=== PATIENT | male | born 1945 | race Caucasian/White ===

== ENCOUNTER 2018-06-21 17:39 | Observation (INO) | payer BC ==
[2018-06-21] MEDS ORDERED: Sodium Chloride 0.9% 10 ML Syringe FLUSH PRN ×2 (17:52→20:31)
[2018-06-21] MEDS ORDERED: Sodium Chloride 0.9% 2.5 ML Syringe FLUSH PRN ×2 (17:52→20:31)
[2018-06-21] MEDS ORDERED: Nitroglycerin 2% Oint 1 GM UD Packet TOP ONE (17:55)
--- NOTE | 2018-06-21 18:03 | EDM.PDOC ---
ED HPI GENERAL MEDICAL PROBLEM - General Chief Complaint: Respiratory Problem Stated Complaint: SHORTNESS OF BREATH Time Seen by Provider: 06/21/18 17:50 - History of Present Illness INITIAL COMMENTS - FREE TEXT/NARRATIVE: HISTORY AND PHYSICAL: History of present illness: The patient is a 73-year-old male with a history of chronic A. fib hypertension diabetes a renal transplant 7 years ago and who follows with Dr. Link Corley in the clinic and presents with complaints of shortness of breath and lower extremity edema that has been progressive over the last 2-3 days. Over the last 2-3 weeks the patient has been seen in the ER down in [place] and has had 2 hospitalizations there. On the first visit he had issues with his left great toe and drove down there because of his concerns about that and he was diagnosed with respiratory issues and cardiac abnormalities, bradycardia. The and patient know only itchy information about that first ER admission and hospitalization and say that he was discharged and he re-presented to the ED again for evaluation of his toe and then had pneumonia at that time. He was admitted on both ER visits and was re-seen by the terminal operator 2 days ago in [place] and was told that his toe would need amputation and that he needs to go get cardiac clearance from his provider here. The patient has scheduled a follow-up appointment with Dr. Jewell but has not gone to that appointment. The patient is on Eliquis as well as Cardizem for his A. fib and he says that the shortness of breath and lower extremity edema has been progressive. His agrees with this. He has no abdominal pain nausea vomiting fevers or chills and says he has no chest pain is just short of breath. He has had some cough but is not terribly productive. He denies any pain at his renal transplant. The patient has been eating and drinking and again has had no fevers and currently in the ED denies any chest pain. In route the patient received 2 nebulizer Che[employer]eman's and says he feels much improved but on arrival he is only satting 88 %. Patient tells nursing that he feels like he cannot take a deep breath because he feels full. The says she has been doing dressing changes on the toe and thinks it looks improved. Please see below addendum for more information as it was obtained throughout the course of his ED stay Review of systems: As per history of present illness and below otherwise all systems reviewed and negative. Past medical history: As per history of present illness and as reviewed below otherwise noncontributory. Surgical history: As per history of present illness and as reviewed below otherwise noncontributory. Social history: No reported history of drug or alcohol abuse. Family history: As per history of present illness and as reviewed below otherwise noncontributory. Physical exam: General: Well-developed well-nourished man who was not breathless on my evaluation but is satting 80% on room air and other vitals are noted by me. On the bus driver/monitor he has A. fib with a bradycardic rate. He is nontoxic and not coughing and not diaphoretic HEENT: Atraumatic, normocephalic, pupils reactive, negative for conjunctival pallor or scleral icterus, mucous membranes moist, throat clear, neck supple, nontender, trachea midline. Lungs: Clear to auscultation with some diminished breath sounds in the bases and some scattered coarse breath sounds and rhonchi, there is no worker breathing or stridor, breath sounds equal bilaterally, chest nontender. Heart: S1S2, irregular rhythm and bradycardic rate but no overt murmurs are appreciated negative for clicks, rubs, or JVD. Abdomen: Soft, nondistended, nontender. His abdomen is very rotund and there is no specific fluid wave. Negative for masses or hepatosplenomegaly. Normoactive bowel sounds, the abdomen is rotund and slightly tympanitic on percussion. The renal transplant is appreciated in the right lower quadrant and is not tender or boggy. Pelvis: Stable nontender. Genitourinary: Deferred. Rectal: Deferred. Extremities: Atraumatic, negative for cords or calf pain. Neurovascular unremarkable. The patient has +1 pitting edema from the knees to the feet. The left great toe has a circular wound on the medial aspect which has some fibrinous material on it and it is clean and dry and there is no gross erythema edema or soft tissue swelling appreciated nor is there any crepitus tenderness or deformities appreciated at the toe. There is no streaking up the foot. Neuro: Awake, alert, oriented. Cranial nerves II through XII unremarkable. Cerebellum unremarkable. Motor and sensory unremarkable throughout. Exam nonfocal. Diagnostics: EKG CBC CMP INR troponin BNP UA lactic acid blood cultures 2 chest x-ray renal ultrasound Therapeutics: IV O2 monitor nitro paste Please note that I was able to review the patient's paperwork and discharge medication list and there is an indication on their that says that one of his diagnoses on one of the admission was acute diastolic CHF. I told the patient and family at bedside this is likely what is occurring right now but the etiology of that is unclear. The patient says that he was given Lasix on the last admission but he was not discharged with that. He said nephrology was involved with his care and his straight knife machine cutter Dr. Ma is at [facility]. The patient said that his baseline creatinine is 1.6-1.7 and after some testing that he had there it declined to 2.1 so today's value of 2.4 he says is better for him.. Patient was told that he would likely need diuresis and he is hesitant to take any medications until the straight knife machine cutter's consult it. He is aware that we do not have nephrology here. 185: Case was discussed with the patient's straight knife machine cutter Dr Ma who feels that the patient can be admitted here and he is aware of all testing results and clinical findings. He would like me to give 80 mg of Lasix and to monitor his renal function and urine output and they would be available as needed for transfer. He does tell me the patient is very volume dependent and that should be monitored very closely. A bedside renal ultrasound was performed and those results will be checked. By Dr. Mclaughlin. The patient also will not be transferred to the floor until he has produced urine output and that has been evaluated. Dr. Mclaughlin will also be checking this prior to transfer to the floor 191: Case was discussed with the hospitalist Dr Reese who is aware of this case and all conversations and is agreeable for admission and would like observation. Critical care time excluding procedures :35min Impression: Dyspnea/lower extremity edema, exacerbation of CHF, history of renal transplant Definitive disposition and diagnosis as appropriate pending reevaluation and review of above. no pain Pain Score (Numeric/FACES): 0 - Related Data Allergies Allergy/AdvReac Type Severity Reaction Status Date / Time Sulfa (Sulfonamide Allergy Rash Verified 06/21/18 18:22 Antibiotics) Home Meds: Home Meds Apixaban [Eliquis] 5 mg PO DAILY 06/21/18 [History] Azithromycin 500 mg PO DAILY 06/21/18 [History] Calcium Magnesium And Zinc 1 tab PO DAILY 06/21/18 [History] Cholecalciferol (Vitamin D3) [Vitamin D3] 1,000 unit PO DAILY 06/21/18 [History] Diltiazem [Cardizem CD] 360 mg PO 06/21/18 [History] Hydrocodone/Acetaminophen [Hydrocodon-Acetaminophen 5-325] 1 each PO 06/21/18 [ History] Insulin Aspart [Novolog] 0 unit SQ 06/21/18 [History] Insulin Glarg,Human.Rec.Analog [Lantus Solostar] 28 unit SQ BEDTIME 06/21/18 [ History] Magnesium 400 mg PO DAILY 06/21/18 [History] Metoprolol Succinate [Toprol XL] 50 mg PO DAILY 06/21/18 [History] Mupirocin Oint [Bactroban Oint] 22 gm .XX DAILY 06/21/18 [History] Mycophenolate Mofetil [Cellcept] 500 mg PO BID 06/21/18 [History] Tacrolimus [Prograf] 0.5 mg PO BEDTIME 06/21/18 [History] amLODIPine [Norvasc] 5 mg PO DAILY 06/21/18 [History] predniSONE [Prednisone] 5 mg PO DAILY 06/21/18 [History] ED ROS GENERAL - Review of Systems Review Of Systems: ROS reveals no pertinent complaints other than HPI. ED EXAM, GENERAL - Physical Exam Exam: See Below (see dictation) Course - Vital Signs Last Recorded V/S: Last Vital Signs Temp 36.1 C 06/21/18 17:39 Pulse 54 L 06/21/18 17:39 Resp 22 H 06/21/18 17:39 BP 144/65 H 06/21/18 17:39 Pulse Ox 92 L 06/21/18 17:53 - Orders/Labs/Meds Orders: Active Orders 24 hr Category Date Time Status Patient Status [ADT] Stat ADT 06/21/18 19:20 Ordered Cardiac Monitoring [RC] . DIRECTED Care 06/21/18 17:53 Active EKG 12 Lead [EKG Documentation Completion] [RC] STAT Care 06/21/18 17:45 Active Oxygen Therapy, ED [RC] ASDIRECTED Care 06/21/18 17:53 Active Pulse Oximetry [RC] ASDIRECTED Care 06/21/18 17:53 Active Art Edgar Duplex Renal Ltd [US] Stat Exams 06/21/18 18:44 Taken Chest 1V Frontal [CR] Stat Exams 06/21/18 17:54 Taken Renal Transplant [US] Stat Exams 06/21/18 18:35 Taken CULTURE BLOOD [BC] Stat Lab 06/21/18 18:00 Received CULTURE BLOOD [BC] Stat Lab 06/21/18 18:10 Received UA W/MICROSCOPIC [URIN] Stat Lab 06/21/18 17:54 Ordered Sodium Chloride 0.9% [Saline Flush] Med 06/21/18 17:52 Active 10 ml FLUSH ASDIRECTED PRN Sodium Chloride 0.9% [Saline Flush] Med 06/21/18 17:52 Active 2.5 ml FLUSH ASDIRECTED PRN Blood Culture x2 Reflex Set [OM.PC] Stat Oth 06/21/18 17:55 Ordered Saline Lock Insert [OM.PC] Stat Oth 06/21/18 17:53 Ordered Medication Orders Sodium Chloride (Saline Flush) 10 ml FLUSH ASDIRECTED PRN PRN Reason: Keep Vein Open Last Admin: 06/21/18 19:11 Dose: 10 ml Sodium Chloride (Saline Flush) 2.5 ml FLUSH ASDIRECTED PRN PRN Reason: Keep Vein Open Last Admin: 06/21/18 19:11 Dose: 2.5 ml Labs: Laboratory Tests 06/21/18 06/21/18 06/21/18 Range/Units 17:35 17:35 17:35 WBC 10.54 (4.0-11.0) K/uL RBC 4.89 (4.50-5.90) M/uL Hgb 14.8 (13.0-17.0) g/dL Hct 44.0 (38.0-50.0) % MCV 90.0 (80.0-98.0) fL MCH 30.3 (27.0-32.0) pg MCHC 33.6 (31.0-37.0) g/dL RDW Std Deviation 46.1 (28.0-62.0) fl RDW Coeff of Jono 14 (11.0-15.0) % Plt Count 278 (150-400) K/uL MPV 9.80 (7.40-12.00) fL Neut % (Auto) 55.8 (48.0-80.0) % Lymph % (Auto) 34.2 (16.0-40.0) % Eddy % (Auto) 8.2 (0.0-15.0) % Eos % (Auto) 1.5 (0.0-7.0) % Baso % (Auto) 0.3 (0.0-1.5) % Neut # (Auto) 5.9 H (1.4-5.7) K/uL Lymph # (Auto) 3.6 H (0.6-2.4) K/uL Eddy # (Auto) 0.9 H (0.0-0.8) K/uL Eos # (Auto) 0.2 (0.0-0.7) K/uL Baso # (Auto) 0.0 (0.0-0.1) K/uL Nucleated RBC % 0.0 /100WBC Nucleated RBCs # 0 K/uL INR 1.12 Lactate (0.20-2.00) mmol/L Sodium 133 L (136-148) mmol/L Potassium 5.3 H (3.5-5.1) mmol/L Chloride 101 (98-107) mmol/L Carbon Dioxide 23.5 (21.0-32.0) mmol/L BUN 37 H (7.0-18.0) mg/dL Creatinine 2.1 H (0.8-1.3) mg/dL Est Cr Clr Drug Dosing TNP Estimated GFR (MDRD) 31.3 ml/min Glucose 252 H (74-106) mg/dL Calcium 9.0 (8.5-10.1) mg/dL Total Bilirubin 0.4 (0.2-1.0) mg/dL AST 18 (15-37) IU/L ALT 25 (14-63) IU/L Alkaline Phosphatase 137 H (46-116) U/L Troponin I < 0.050 (0.000-0.056) ng/mL B-Natriuretic Peptide (<100) PG/ML Total Protein 6.8 (6.4-8.2) g/dL Albumin 3.4 (3.4-5.0) g/dL Globulin 3.4 (2.0-3.5) g/dL Albumin/Globulin Ratio 1.0 L (1.3-2.8) 06/21/18 06/21/18 Range/Units 17:35 18:10 WBC (4.0-11.0) K/uL RBC (4.50-5.90) M/uL Hgb (13.0-17.0) g/dL Hct (38.0-50.0) % MCV (80.0-98.0) fL MCH (27.0-32.0) pg MCHC (31.0-37.0) g/dL RDW Std Deviation (28.0-62.0) fl RDW Coeff of Jono (11.0-15.0) % Plt Count (150-400) K/uL MPV (7.40-12.00) fL Neut % (Auto) (48.0-80.0) % Lymph % (Auto) (16.0-40.0) % Eddy % (Auto) (0.0-15.0) % Eos % (Auto) (0.0-7.0) % Baso % (Auto) (0.0-1.5) % Neut # (Auto) (1.4-5.7) K/uL Lymph # (Auto) (0.6-2.4) K/uL Eddy # (Auto) (0.0-0.8) K/uL Eos # (Auto) (0.0-0.7) K/uL Baso # (Auto) (0.0-0.1) K/uL Nucleated RBC % /100WBC Nucleated RBCs # K/uL INR Lactate 1.3 (0.20-2.00) mmol/L Sodium (136-148) mmol/L Potassium (3.5-5.1) mmol/L Chloride (98-107) mmol/L Carbon Dioxide (21.0-32.0) mmol/L BUN (7.0-18.0) mg/dL Creatinine (0.8-1.3) mg/dL Est Cr Clr Drug Dosing Estimated GFR (MDRD) ml/min Glucose (74-106) mg/dL Calcium (8.5-10.1) mg/dL Total Bilirubin (0.2-1.0) mg/dL AST (15-37) IU/L ALT (14-63) IU/L Alkaline Phosphatase (46-116) U/L Troponin I (0.000-0.056) ng/mL B-Natriuretic Peptide 1538 H (<100) PG/ML Total Protein (6.4-8.2) g/dL Albumin (3.4-5.0) g/dL Globulin (2.0-3.5) g/dL Albumin/Globulin Ratio (1.3-2.8) Meds: Medications Generic Name Dose Route Start Last Admin Trade Name Freq PRN Reason Stop Dose Admin Sodium Chloride 10 ml 06/21/18 17:52 06/21/18 19:11 Saline Flush FLUSH 10 ml ASDIRECTED PRN Administration Keep Vein Open Sodium Chloride 2.5 ml 06/21/18 17:52 06/21/18 19:11 Saline Flush FLUSH 2.5 ml ASDIRECTED PRN Administration Keep Vein Open Discontinued Medications Generic Name Dose Route Start Last Admin Trade Name Freq PRN Reason Stop Dose Admin Furosemide 80 mg 06/21/18 19:02 06/21/18 19:11 Lasix IVPUSH 06/21/18 19:03 80 mg NOW ONE Administration Nitroglycerin 0.5 gm 06/21/18 17:55 06/21/18 18:01 Nitro-Bid 2% TOP 06/21/18 17:56 0.5 gm ONETIME ONE Administration Departure - Departure Time of Disposition: 19:22 Disposition: Refer to Observation Condition: Good Clinical Impression: Renal transplant recipient Congestive heart failure Qualifiers: Heart failure type: unspecified Heart failure chronicity: unspecified Qualified Code(s): I50.9 - Heart failure, unspecified - Discharge Information Referrals: PCP,None [Primary Care Provider] - Forms: ED Department Discharge - My Orders Last 24 Hours: My Active Orders 06/21/18 17:45 EKG 12 Lead [EKG Documentation Completion] [RC] STAT 06/21/18 17:52 Sodium Chloride 0.9% [Saline Flush] 10 ml FLUSH ASDIRECTED PRN Sodium Chloride 0.9% [Saline Flush] 2.5 ml FLUSH ASDIRECTED PRN 06/21/18 17:53 Cardiac Monitoring [RC] . DIRECTED Oxygen Therapy, ED [RC] ASDIRECTED Pulse Oximetry [RC] ASDIRECTED Saline Lock Insert [OM.PC] Stat 06/21/18 17:54 Chest 1V Frontal [CR] Stat UA W/MICROSCOPIC [URIN] Stat 06/21/18 17:55 Blood Culture x2 Reflex Set [OM.PC] Stat 06/21/18 18:00 CULTURE BLOOD [BC] Stat 06/21/18 18:10 CULTURE BLOOD [BC] Stat 06/21/18 18:35 Renal Transplant [US] Stat 06/21/18 18:44 Art Edgar Duplex Renal Ltd [US] Stat 06/21/18 19:20 Patient Status [ADT] Stat - Assessment/Plan Last 24 Hours: My Active Orders 06/21/18 17:45 EKG 12 Lead [EKG Documentation Completion] [RC] STAT 06/21/18 17:52 Sodium Chloride 0.9% [Saline Flush] 10 ml FLUSH ASDIRECTED PRN Sodium Chloride 0.9% [Saline Flush] 2.5 ml FLUSH ASDIRECTED PRN 06/21/18 17:53 Cardiac Monitoring [RC] . DIRECTED Oxygen Therapy, ED [RC] ASDIRECTED Pulse Oximetry [RC] ASDIRECTED Saline Lock Insert [OM.PC] Stat 06/21/18 17:54 Chest 1V Frontal [CR] Stat UA W/MICROSCOPIC [URIN] Stat 06/21/18 17:55 Blood Culture x2 Reflex Set [OM.PC] Stat 06/21/18 18:00 CULTURE BLOOD [BC] Stat 06/21/18 18:10 CULTURE BLOOD [BC] Stat 06/21/18 18:35 Renal Transplant [US] Stat 06/21/18 18:44 Art Edgar Duplex Renal Ltd [US] Stat 06/21/18 19:20 Patient Status [ADT] Stat
[2018-06-21 18:21] LABS: CHLORIDE,CL 101 mmol/L (98-107); SODIUM,NA 133 mmol/L (136-148)
[2018-06-21] MEDS ORDERED: Furosemide 40 MG/4 ML VIAL IVPUSH ONE (19:02)
[2018-06-21] MEDS ORDERED: Albuterol/Ipratropium 3.0-0.5 MG/3 ML Neb Soln NEB PRN (20:31)
[2018-06-21] MEDS ORDERED: Morphine 10 MG/ML Syringe IVPUSH PRN (20:31)
[2018-06-21] MEDS ORDERED: Tacrolimus 0.5 MG Cap PO SCH (21:00)
[2018-06-21] MEDS ORDERED: Insulin Glargine,Human Rec. Analog 100 Units/ML 3 ML Pen SUBCUT SCH (21:00)
[2018-06-21] MEDS ORDERED: Levofloxacin/Dextrose 5%-Water 750 MG in Premix Bag 1 BAG IV ONE (22:01)
[2018-06-21] MEDS: Mycophenolate Mofetil 250 MG Cap PO SCH (22:18)
[2018-06-21] MEDS: Insulin Aspart 100 Units/ML 3 ML Pen SUBCUT SCH (22:18)
[2018-06-21] MEDS: Tacrolimus 0.5 MG Cap PO SCH (22:57)
[2018-06-22] MEDS: Piperacillin/Tazobactam 3.375 GM in Sodium Chloride 0.9% 50 ML IV SCH ×3 (00:11→15:24)
[2018-06-22] MEDS ORDERED: Insulin Glargine,Human Rec. Analog 100 Units/ML 3 ML Pen SUBCUT SCH ×2 (07:30→09:00)
[2018-06-22] MEDS: Insulin Aspart 100 Units/ML 3 ML Pen SUBCUT SCH ×2 (07:57→12:00)
[2018-06-22] MEDS: Mycophenolate Mofetil 250 MG Cap PO SCH (08:23)
[2018-06-22] MEDS: Tacrolimus 0.5 MG Cap PO SCH (08:23)
[2018-06-22] MEDS ORDERED: predniSONE 5 MG Tab PO SCH (09:00)
[2018-06-22] MEDS ORDERED: Apixaban 5 MG Tab PO SCH (09:00)
[2018-06-22] MEDS ORDERED: amLODIPine 2.5 MG Tab PO SCH (09:00)
[2018-06-22] MEDS ORDERED: Furosemide 40 MG/4 ML VIAL IVPUSH SCH (09:00)
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
[2018-06-22] MEDS ORDERED: Diltiazem 120 MG Cap.CD PO ONE (12:28)
--- NOTE | 2018-06-22 15:11 | CR ---
EXAM DATE: 06/21/18 PATIENT'S AGE: 73 Patient: VERITO BERG Facility: [place], [place] Site . Site : 1945 Study: XRay Chest [id number]/[id number] 6:21:35 PM Ordering Physician: Doctor Hamm Final Report: INDICATION: pain/sob HISTORY: Pain. Shortness of breath. COMPARISON: None. TECHNIQUE: Chest 1 view upright. FINDINGS: or nurse manager leads overlie the patient. Heart size is at the upper limits of normal. Pulmonary vasculature is indistinct. There are interstitial type opacities bilaterally, with an apical basilar gradient. There is no pneumothorax. The central airway is normal. The osseous structures are intact. Blunting of the left lateral costophrenic sulcus. IMPRESSION: 1. Interstitial pulmonary edema. 2. Left pleural effusion, small, with basilar atelectasis or less likely consolidation. Dictated by Jayme Valente MD @ 06/21/2018 6:25:40 PM Dictated by: Jayme Valente MD @ 06/21/2018 18:25:46 (Electronic Signature) Report Signed by Proxy. [facility]
--- NOTE | 2018-06-22 15:14 | US ---
EXAM DATE: 06/21/18 PATIENT'S AGE: 73 Patient: VERITO BERG Facility: [place], [place] Site . Site : 1945 Study: US Abdomen [id number]/26/2018 7:20:24 PM Ordering Physician: Kenneth Ramos Final Report: INDICATION: CHF,KIDNEY TRANSPLANT, EVALUATE RENAL BLOOD FLOW HISTORY: CHF. Kidney transplant. COMPARISON: Retroperitoneal ultrasound 07/19/2010. TECHNIQUE: Renal transplant ultrasound with Doppler. 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 It measures 12.6 x 5.9 x 6.9 cm. There is a benign cyst in the transplant kidney measuring 4.0 x 5.0 cm. There is no hydronephrosis, solid mass, or perinephric fluid collection. Resistive indices within the arcuate arteries range from 0.65-0.76. There is no delayed systolic upstroke or reduced systolic peak to indicate an inflow stenosis. Peak systolic velocity of the distal right transplant renal artery is 35 cm/sec, and in the mid segment, 35 cm/sec. Transplant renal vein was not imaged. Peak systolic velocity of the abdominal aorta is 40.6 cm/sec. IMPRESSION: 1. Renal allograft in the right lower quadrant iliac fossa. 2. No hydronephrosis, solid mass, or peritransplant fluid collection. 3. 5 cm benign cyst in the renal allograft. 4. Limited evaluation on color/spectral Doppler. However, no delayed systolic upstroke or reduced systolic peak within the arcuate arteries to indicate an inflow stenosis. Dictated by Jayme Valente MD @ 06/21/2018 7:37:37 PM Dictated by: Jayme Valente MD @ 06/21/2018 19:37:42 (Electronic Signature) Report Signed by Proxy. KAREN
--- NOTE | 2018-06-22 15:49 | US ---
EXAM DATE: 06/21/18 PATIENT'S AGE: 73 Patient: VERITO BERG Facility: [facility] Site . Site : 1945 Study: US-Abdomen [id number]/26/2018 7:20:24 PM Ordering Physician: Kenneth Ramos Final Report: INDICATION: CHF,KIDNEY TRANSPLANT, EVALUATE RENAL BLOOD FLOW HISTORY: CHF. Kidney transplant. COMPARISON: Retroperitoneal ultrasound 07/19/2010. TECHNIQUE: Renal transplant ultrasound with Doppler. 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 It measures 12.6 x 5.9 x 6.9 cm. There is a benign cyst in the transplant kidney measuring 4.0 x 5.0 cm. There is no hydronephrosis, solid mass, or perinephric fluid collection. Resistive indices within the arcuate arteries range from 0.65-0.76. There is no delayed systolic upstroke or reduced systolic peak to indicate an inflow stenosis. Peak systolic velocity of the distal right transplant renal artery is 35 cm/sec, and in the mid segment, 35 cm/sec. Transplant renal vein was not imaged. Peak systolic velocity of the abdominal aorta is 40.6 cm/sec. IMPRESSION: 1. Renal allograft in the right lower quadrant iliac fossa. 2. No hydronephrosis, solid mass, or peritransplant fluid collection. 3. 5 cm benign cyst in the renal allograft. 4. Limited evaluation on color/spectral Doppler. However, no delayed systolic upstroke or reduced systolic peak within the arcuate arteries to indicate an inflow stenosis. Dictated by Jayme Valente MD @ 06/21/2018 7:37:37 PM Dictated by: Jayme Valente MD @ 06/21/2018 19:37:42 Signed by: Jayme Valente MD @06/21/2018 7:37:42 PM (Electronic Signature) Report Signed by Proxy. KAREN
[2018-06-23] MEDS ORDERED: Insulin Glargine,Human Rec. Analog 100 Units/ML 3 ML Pen SUBCUT SCH (07:30)
== END 2018-06-22 13:53 ==
LOC: MW.ED 17:39 → MW.ICU 19:20
PROVIDERS: ADMIT Internal Medicine; ATTEND Internal Medicine
DX: I13.0 Hypertensive heart and chronic kidney disease with heart failure and stage 1 through stage 4 chronic kidney disease, or unspecified chronic kidney disease (principal); I50.1 Left ventricular failure, unspecified; E10.22 Type 1 diabetes mellitus with diabetic chronic kidney disease; N18.9 Chronic kidney disease, unspecified; Z94.0 Kidney transplant status; E10.621 Type 1 diabetes mellitus with foot ulcer; L97.513 Non-pressure chronic ulcer of other part of right foot with necrosis of muscle; I48.91 Unspecified atrial fibrillation; Z79.4 Long term (current) use of insulin; Z79.01 Long term (current) use of anticoagulants; Z79.899 Other long term (current) drug therapy; Z88.2 Allergy status to sulfonamides; Z97.4 Presence of external hearing-aid; N28.1 Cyst of kidney, acquired; J15.6 Pneumonia due to other Gram-negative bacteria; D89.9 Disorder involving the immune mechanism, unspecified
CPT/HCPCS: 36415; 71045; 76776; 80053; 81001; 82962; 83605; 83735; 83880; 84100; 84484; 85025; 85027; 85610; 87040; 87070; 87205; 93976; 96374; 99285; A9270; J1815; J1940; J1956; J2543; J3370; J7050; J7507; 96365; 96366; 96367; G0378